=== PATIENT | female | born 1970 ===

== ENCOUNTER 2017-11-07 07:50 | Emergency (ER) | payer OTHER ==
[~2017-11-07] VITALS: Ht 154.9 cm; Wt 71.2 kg
[2017-11-07] MEDS ORDERED: SYNTHROID50 MCG PO (08:15)
== END 2017-11-07 13:05 | disposition home or self-care (01) ==
LOC: ER 07:50
DX: N93.8 Other specified abnormal uterine and vaginal bleeding (principal); D25.9 Leiomyoma of uterus, unspecified